=== PATIENT | female | born 2000 | race Caucasian/White ===

== ENCOUNTER → 2021-09-05 | Outpatient (REF) | payer OTHER | LOC: M SFHCWAGY 17:32 | PROVIDERS: ATTEND Nurse Practitioner Women's Health | DX: Z12.4 Encounter for screening for malignant neoplasm of cervix (principal) | CPT/HCPCS: G0123; G0463 ==

== ENCOUNTER → 2023-04-14 | Outpatient (CLI) | payer OTHER | LOC: M RAD 08:37 | PROVIDERS: ATTEND Registered Nurse | DX: O26.843 Uterine size-date discrepancy, third trimester (principal); Z36.89 Encounter for other specified antenatal screening; Z3A.30 30 weeks gestation of pregnancy ==

== ENCOUNTER 2023-06-22 19:50 | Inpatient (IN) | payer OTHER ==
[~2023-06-22] VITALS: Ht 167.6 cm; Wt 115.0 kg
[2023-06-22] VITALS (16 sets, daily range): BP systolic 95–136; BP diastolic 51–81
[~2023-06-22 19:50] MED LIST: ONDA-83 PO; PRENTAB9 PO
[2023-06-22] MEDS ORDERED: LACTATED RINGER'S 1000 ML IV STA (20:34)
[2023-06-22] MEDS ORDERED: METHYLERGONOVINE MALEATE 0.2MG/ML 1ML VIAL IM PRN (20:35)
[2023-06-22] MEDS ORDERED: OXYTOCIN DRIP 30 UNITS in IV 1 EA IV PRN ×4 (20:35)
[2023-06-22] MEDS ORDERED: TRANEXAMIC ACID INJection 1,000 MG in NS 100 ML IV PRN (20:35)
[2023-06-22] MEDS ORDERED: LIDOCAINE 1% MDV 20ML VIAL INFIL PRN (20:35)
[2023-06-22] MEDS ORDERED: LR 1,000 ML IV SCH (20:35)
[2023-06-22 21:38] LABS: HEMOGLOBIN 13.9 g/dl (12.0-15.5); MEAN CORPUSCULAR HEMOGLOBIN 29.8 pg (27.0-33.0); MEAN CORPUSCULAR HGB CONC 33.9 g/dl (32.0-36.5); MEAN CORPUSCULAR VOLUME 87.8 fl (80.0-96.0); PLATELET COUNT, AUTOMATED 262 10^3/uL (150-450); RED BLOOD COUNT 4.67 10^6/uL (4.00-5.40); WHITE BLOOD COUNT 12.4 10^3/uL (4.0-10.0)
[2023-06-22] MEDS ORDERED: diphenhydrAMINE 50MG/ML VIAL IV PRN (21:55)
[2023-06-22] MEDS ORDERED: LR 500 ML IV PRN (21:55)
[2023-06-22] MEDS ORDERED: NALOXONE INJ 0.4MG/1ML VIAL IV PRN (21:55)
[2023-06-22] MEDS ORDERED: FENTANYL/ROPIVACAINE/NACL BAG 100 ML EPIDURAL SCH (21:55)
[2023-06-22] MEDS ORDERED: EPIDURAL/PCA KEYS XX PRN (21:55)
[2023-06-22] MEDS ORDERED: ONDANSETRON 4MG 2ML VIAL IV PRN (21:55)
[2023-06-22] MEDS: ePHEDrine SULFATE 25 MG/5 ML(5MG/ML) SYRINGE IVP PRN ×3 (23:42→23:46)
[2023-06-23] VITALS (17 sets, daily range): BP systolic 102–131; BP diastolic 54–78; O2SAT 98–99
[2023-06-23 02:17] LABS: CORD GAS ABE A -12.1; CORD GAS ABE V -6.4; CORD GAS HCO3 A 18.1 MMOL/L; CORD GAS HCO3 V 21.6 MMOL/L; CORD GAS O2 SAT A 98.5 %; CORD GAS O2 SAT V 74.3 %; CORD GAS PCO2 A 58.6 mmHg; CORD GAS PCO2 V 52.2 mmHg; CORD GAS PH A 7.108 UNITS; CORD GAS PH V 7.234 UNITS; CORD GAS PO2 A 109.5 mmHg; CORD GAS PO2 V 35.6 mmHg; CORD GAS SBC A 15.3 MMOL/L; CORD GAS SBC V 18.8 MMOL/L; CORD GAS TCO2 A 19.9 MMOL/L; CORD GAS TCO2 V 23.2 MMOL/L
[2023-06-23] MEDS ORDERED: DOCUSATE SODIUM 100MG CAPSULE PO PRN (02:55)
[2023-06-23] MEDS ORDERED: RHOGAM 300MCG (1500IU) INJ IM SCH (02:55)
[2023-06-23] MEDS ORDERED: METHYLERGONOVINE MALEATE 0.2MG/ML 1ML VIAL IM PRN (02:55)
[2023-06-23] MEDS ORDERED: ONDANSETRON 4MG 2ML VIAL IV PRN (02:55)
[2023-06-23] MEDS ORDERED: METOCLOPRAMIDE INJ 10MG/2ML VIAL IV PRN (02:55)
[2023-06-23] MEDS ORDERED: OXYTOCIN DRIP 30 UNITS in IV 1 EA IV SCH (02:55)
[2023-06-23] MEDS ORDERED: LR 1,000 ML IV SCH (02:55)
[2023-06-23] MEDS ORDERED: DIBUCAINE 1% OINTMENT 30GM TOP PRN (02:55)
[2023-06-23] MEDS: IBUPROFEN 800 MG TAB PO SCH ×3 (03:15→20:55)
[2023-06-23] MEDS: ACETAMINOPHEN 500 MG TAB PO SCH ×4 (03:15→22:01)
[2023-06-23] MEDS: PRENATAL VITAMINS CHEWABLE TABLET PO SCH (07:55)
[2023-06-24] MEDS: IBUPROFEN 800 MG TAB PO SCH (04:07)
[2023-06-24] MEDS: ACETAMINOPHEN 500 MG TAB PO SCH ×2 (04:08→09:33)
[2023-06-24 06:00] VITALS: BP 112/65; O2SAT 99
[2023-06-24 06:11] LABS: HEMATOCRIT 30.7 % (36.0-47.0); MEAN CORPUSCULAR HEMOGLOBIN 29.9 pg (27.0-33.0); MEAN CORPUSCULAR HGB CONC 33.2 g/dl (32.0-36.5); PLATELET COUNT, AUTOMATED 189 10^3/uL (150-450); RED BLOOD COUNT 3.41 10^6/uL (4.00-5.40); WHITE BLOOD COUNT 11.8 10^3/uL (4.0-10.0)
[2023-06-24 06:23] LABS: HEMOGLOBIN 10.2 g/dl (12.0-15.5)
[2023-06-24] MEDS: PRENATAL VITAMINS CHEWABLE TABLET PO SCH (09:32)
[2023-06-25] MEDS ORDERED: MEASLES,MUMPS,RUBELLA VACCINE INJ (MMR-II) SC.IMMUN ONE (09:00)
== END 2023-06-24 13:29 | disposition home or self-care (01) | DRG 807 ==
LOC: M LDO 19:50 → M LDI 20:22 → M OBS 06-23 06:21
PROVIDERS: ADMIT Obstetrics & Gynecology; ATTEND Obstetrics & Gynecology
PROC: 10E0XZZ Delivery of Products of Conception, External Approach (ICD-10-PCS; principal; 2023-06-23)
PROC: 0KQM0ZZ Repair Perineum Muscle, Open Approach (ICD-10-PCS; 2023-06-23)
DX: O24.420 Gestational diabetes mellitus in childbirth, diet controlled (principal); Z37.0 Single live birth; Z3A.39 39 weeks gestation of pregnancy; O69.82X0 Labor and delivery complicated by other cord entanglement, without compression, not applicable or unspecified; O70.1 Second degree perineal laceration during delivery